=== PATIENT | male | born 1990 | race African-American/Black ===

== ENCOUNTER 2017-02-09 16:30 | Emergency (ER) | payer SELFPAY ==
[~2017-02-09] VITALS: Ht 175.3 cm; Wt 69.8 kg
--- NOTE | 2017-02-09 16:46 | NUR ---
PT IS IN ROOM #2A. DR KUMAR EVALUATED THE PT.
[2017-02-09 17:47] LABS: *BILIRUBIN,URIN NEGATIVE (NEGATIVE); *BLOOD, URINE NEGATIVE (NEGATIVE); *CLARITY,URINE SLIGHTLY CLOUDY (CLEAR); *COLOR,URINE YELLOW (YELLOW); *KETONES,URINE NEGATIVE (NEGATIVE); *PROTEIN,URINE TRACE (NEGATIVE); *UROBILINOGEN,URINE 0.2 E.U./dl (NORMAL); LEUKOCYTE ESTERASE ,URINE NEGATIVE (NEGATIVE); NITRITE, URINE NEGATIVE (NEGATIVE); PH,URINE 5.5 (5.0-8.0); UGLUCOSE NEGATIVE (NEGATIVE)
[2017-02-09] MEDS ORDERED: AZITHROMYCIN 250 MG TABLET PO ONE (18:15)
[2017-02-09] MEDS ORDERED: ONDANSETRON ODT 4 MG TAB.RAPDIS SL ONE (18:15)
[2017-02-09] MEDS ORDERED: CEFTRIAXONE 500 MG VIAL IM ONE (18:15)
[2017-02-09 18:17] LABS: BACTERIA,URINE NONE SEEN /HPF (NONE SEEN); RBC,URINE 0-3 /HPF (0-3); SQUAMOUS EPITHELIAL CELL,UR NONE SEEN /HPF (NONE SEEN); WBC,URINE 0-3 /HPF (0-3)
[2017-02-09] MEDS ORDERED: AZITHROMYCIN 250 MG TABLET ONE (18:31)
[2017-02-09] MEDS ORDERED: CEFTRIAXONE 500 MG VIAL ONE (18:31)
[2017-02-09] MEDS ORDERED: ONDANSETRON ODT 4 MG TAB.RAPDIS ONE (18:32)
[2017-02-09] MEDS ORDERED: LIDOCAINE HCL 2% 20 ML VIAL ONE (18:33)
[2017-02-09 18:55] VITALS: BP 136/87
--- NOTE | 2017-02-09 18:55 | NUR ---
PT WAS D/C TO HOME. D/C INSTRUCTIONS GIVEN TO THE PT.
[2017-02-12 09:12] LABS: *GC NAA Negative (Negative); *TRIC.VAG. NAA Negative (Negative)
== END 2017-02-09 18:56 | disposition home or self-care (01) ==
LOC: ER 16:36
DX: N34.2 Other urethritis (principal); J45.909 Unspecified asthma, uncomplicated
CPT/HCPCS: 76870; 87491; A4663; J0696; J3490; Q0144; Q0162

== ENCOUNTER 2017-04-02 01:44 | Emergency (ER) | payer MEDICAID ==
[~2017-04-02] VITALS: Ht 180.3 cm; Wt 72.6 kg
[2017-04-02] MEDS ORDERED: CEFTRIAXONE 500 MG VIAL IV ONE (02:30)
[2017-04-02] MEDS ORDERED: LIDOCAINE HCL 1% 20 ML VIAL ONE (02:44)
[2017-04-02] MEDS ORDERED: CEFTRIAXONE 500 MG VIAL ONE (02:44)
--- NOTE | 2017-04-02 02:46 | NUR ---
Patient discharged to home in stable conditon. Written and verbal after care instructions given. Patient verbalizes understanding of instructions.
[2017-04-03] MEDS ORDERED: DOXY100C2 PO (13:31)
[2017-04-04 11:09] LABS: *GC NAA Negative (Negative); *TRIC.VAG. NAA Negative (Negative)
== END 2017-04-02 02:46 | disposition home or self-care (01) ==
LOC: ER 01:53
DX: N34.2 Other urethritis (principal); F17.200 Nicotine dependence, unspecified, uncomplicated; J45.909 Unspecified asthma, uncomplicated
CPT/HCPCS: 87491; A4663; J0696; J3490

== ENCOUNTER 2017-04-03 13:15 | Emergency (ER) | payer MEDICAID ==
[~2017-04-03] VITALS: Ht 177.8 cm; Wt 74.8 kg
[2017-04-03] MEDS ORDERED: DOXY100C2 PO (13:31)
[2017-04-03] MEDS ORDERED: CEFTRIAXONE 500 MG VIAL IM ONE (14:00)
--- NOTE | 2017-04-03 14:20 | NUR ---
PT IS IN ROOM #2A. DR TORRES EVALUATED THE PT.
[2017-04-03] MEDS ORDERED: CEFTRIAXONE 500 MG VIAL ONE ×2 (14:22→14:23)
[2017-04-03] MEDS ORDERED: LIDOCAINE HCL 2% 20 ML VIAL ONE (14:24)
[2017-04-03 14:57] VITALS: BP 136/78
== END 2017-04-03 14:57 | disposition home or self-care (01) ==
LOC: ER 13:15
DX: N43.3 Hydrocele, unspecified (principal); I86.1 Scrotal varices; J45.909 Unspecified asthma, uncomplicated; F17.200 Nicotine dependence, unspecified, uncomplicated
CPT/HCPCS: 76870; A4663; J0696; J3490